=== PATIENT | female | born 1965 | race Caucasian/White ===

== ENCOUNTER 2017-03-11 03:34 | Observation (INO) | payer OTHER ==
[2017-03-11] MEDS ORDERED: NITROGLYCERIN SL TABS 0.4 MG TAB SUBLINGUAL STA (03:54)
--- NOTE | 2017-03-11 04:00 | ED ---
Chest Pain HPI - General Chief Complaint: Chest Pain Stated Complaint: Chest pain Time Seen by Provider: 03/11/17 03:41 Source: patient Mode of arrival: wheelchair Limitations: no limitations - History of Present Illness Initial Comments: Patient is a 51-year-old woman who presents to be evaluated for left-sided chest pain. Patient states that she had gotten up to use the bathroom around 3 AM. She noted that she was feeling somewhat lightheaded. After she had gone back to bed she noted that she was having some left-sided chest pain. He was a heavy sensation, constant, moderate severity area she did not note any worsening or relieving factors. The patient did take 4 baby aspirin at home and they decided she should be seen here. While she was coming to the emergency department she noted some pain to her left arm. The patient denies dyspnea, diaphoresis, nausea or vomiting, palpitations or syncope. MD Complaint: chest pain -: minutes(s) Onset: during rest Pain Location: left chest Pain Radiation: LUE Severity: moderate Quality: tightness Consistency: constant Improves With: nothing Worsens With: nothing Treatments Prior to Arrival: aspirin - Related Data Home Medications Medication Instructions Recorded Confirmed Hydrochlorothiazide [Hydrodiuril] 12.5 mg PO DAILY 03/11/17 03/11/17 Allergies Allergy/AdvReac Type Severity Reaction Status Date / Time amoxicillin Allergy Rash/Hives Verified 03/11/17 03:39 Review of Systems ROS Statement: Those systems with pertinent positive or pertinent negative responses have been documented in the HPI. ROS Other: All systems not noted in ROS Statement are negative. Constitutional: Denies: fever, chills Respiratory: Denies: cough, dyspnea Cardiovascular: Reports: as per HPI, chest pain. Denies: palpitations, edema, syncope Gastrointestinal: Denies: abdominal pain, nausea, vomiting, diarrhea Genitourinary: Denies: dysuria, hematuria Musculoskeletal: Denies: back pain Skin: Denies: rash Neurological: Denies: headache, weakness, numbness Psychiatric: Reports: anxiety EKG Findings - EKG Results: EKG: interpreted by BRAD, sinus rhythm (Rate 93 bpm), normal axis, normal QRS, normal ST/T - Blocks, [place], Hypertrophy, ST Abn: Repolarization changes or abnormalities: nonspecific abnormality, ST segment, and/or T wave, Q-T interval prolongation Past Medical History Past Medical History: Hypertension History of Any Multi-Drug Resistant Organisms: None Reported Past Surgical History: Orthopedic Surgery Additional Past Surgical History / Comment(s): Right ankle surgery Past Psychological History: No Psychological Hx Reported Smoking Status: Never smoker Past Alcohol Use History: None Reported Past Drug Use History: None Reported General Exam Limitations: no limitations General appearance: alert, in no apparent distress, obese Head exam: Present: atraumatic, normocephalic Eye exam: Present: normal appearance. Absent: scleral icterus, conjunctival injection ENT exam: Present: normal oropharynx Neck exam: Present: normal inspection, full ROM Respiratory exam: Present: normal lung sounds bilaterally. Absent: respiratory distress, wheezes, rales, rhonchi, stridor, chest wall tenderness Cardiovascular Exam: Present: regular rate, normal rhythm, normal heart sounds. Absent: systolic murmur, diastolic murmur, rubs, gallop GI/Abdominal exam: Present: soft. Absent: distended, tenderness, guarding, rebound, mass Extremities exam: Present: normal inspection, normal capillary refill. Absent: pedal edema, calf tenderness Back exam: Present: normal inspection. Absent: CVA tenderness (R), CVA tenderness (L) Neurological exam: Present: alert Skin exam: Present: warm, dry, intact, normal color. Absent: rash Course Vital Signs 03/11/17 03/11/17 03/11/17 03:36 04:06 05:00 Temperature 98.0 F Pulse Rate 95 71 84 Respiratory 18 18 20 Rate Blood Pressure 180/96 136/77 O2 Sat by Pulse 98 99 100 Oximetry 03/11/17 06:00 Temperature Pulse Rate 80 Respiratory 16 Rate Blood Pressure 144/81 O2 Sat by Pulse 100 Oximetry Chest Pain MDM - MDM This patient is a 51-year-old woman coming to the hospital evaluated for left- sided chest pain. The patient does have extensive family history for coronary artery disease and she has not had previous cardiology workup. Her initial workup is negative but given the risk factors will admit the patient for telemetry monitoring, serial cardiac enzymes and cardiology consultation. Disposition Clinical Impression: Chest pain Disposition: ADMITTED IP TO THIS [facility] Condition: Fair Referrals: Vargas Castillo DO [Primary Care Provider] - 1-2 days
[2017-03-11 04:09] LABS: Basophils # (A) 0.1 k/uL (0-0.2); Basophils % (A) 1 %; CHCM 33.3; Eosinophils # (A) 0.4 k/uL (0-0.7); Eosinophils % (A) 4 %; HCT 40.2 % (34.0-46.0); HDW 2.87; HGB 13.2 gm/dL (11.4-16.0); Luc # (Auto) 0.21; Luc % (Auto) 2; Lymphocytes # (A) 3.5 k/uL (1.0-4.8); Lymphocytes % (A) 33 %; MCH 28.7 pg (25.0-35.0); MCHC 32.9 g/dL (31.0-37.0); MCV 87.3 fL (80.0-100.0); Mean Platelet Volume 6.8; Monocytes # (A) 0.5 k/uL (0-1.0); Monocytes % (A) 5 %; Neutrophils % (A) 57 %; RBC 4.61 m/uL (3.80-5.40); WBC 10.7 k/uL (3.8-10.6); WBC (Perox) 10.78
[2017-03-11 04:18] LABS: ALT 18 U/L (9-52); AST 23 U/L (14-36); Alkaline Phosphatase 125 U/L (38-126); Anion Gap 8 mmol/L; Blood Urea Nitrogen 17 mg/dL (7-17); Calcium 9.2 mg/dL (8.4-10.2); Carbon Dioxide 26 mmol/L (22-30); Chloride 107 mmol/L (98-107); Glucose 120 mg/dL (74-99); Non-African American GFR(MDRD) >60 (>60 ml/min/1.73 sqM); Sodium 141 mmol/L (137-145); Total Bilirubin 0.5 mg/dL (0.2-1.3); Total Protein 6.9 g/dL (6.3-8.2)
[2017-03-11 04:25] LABS: Partial Thromboplastin Time 24.3 sec (22.0-30.0)
[2017-03-11 04:37] LABS: Creatine Kinase 120 U/L (30-135)
--- NOTE | 2017-03-11 04:48 | XR ---
EXAM: XR Chest, 1 View CLINICAL HISTORY: Chest pain. TECHNIQUE: Frontal view of the chest. COMPARISON: No relevant prior studies available. FINDINGS: Lungs: No focal consolidation. No evidence of pulmonary edema. Pleural space: No pleural effusion. No pneumothorax. Heart: Unremarkable. Normal cardiac silhouette size. Mediastinum: Unremarkable. Bones/joints: Unremarkable. IMPRESSION: No radiographic evidence of acute cardiopulmonary process.
[2017-03-11 04:50] LABS: Creatine Kinase MB 1.6 ng/mL (0.0-2.4); Troponin I <0.012 ng/mL (0.000-0.034)
[2017-03-11] MEDS ORDERED: RX INFO: IV CONTRAST WAS GIVEN 1 EACH MISC MISCELLANE PRN (04:53)
--- NOTE | 2017-03-11 06:11 | CT ---
EXAM: CT Angiography Chest With Intravenous Contrast CLINICAL HISTORY: Pain. TECHNIQUE: Axial computed tomographic angiography images of the chest with intravenous contrast using pulmonary embolism protocol. MIP reconstructed images were created and reviewed. Coronal and sagittal reformatted images were created and reviewed. DOSE INFORMATION: CTDI is 7.50, 78.40, 19.50 mGy and DLP is 645.40 mGy-cm. This CT exam was performed using one or more of the following dose reduction techniques: automated exposure control, adjustment of the mA and/or kV according to patient size, and/or use of iterative reconstruction technique. COMPARISON: No prior CT available for comparison. FINDINGS: Pulmonary arteries: No evidence of central pulmonary embolism. Suboptimal opacification of the peripheral pulmonary arteries limits evaluation for small peripheral pulmonary emboli. Aorta: No thoracic aortic aneurysm or dissection. Lungs: Mild motion artifact. No evidence of focal consolidation. No pulmonary edema. Pleural space: No pleural effusion. No pneumothorax. Heart: Normal cardiac size. No pericardial effusion. No evidence of RV dysfunction. Bones/joints: Degenerative changes of the spine. No acute fracture. No dislocation. Soft tissues: No significant soft tissue abnormality. Lymph nodes: No enlarged lymph nodes. Liver: Fatty infiltration of the liver. IMPRESSION: 1. No evidence of central pulmonary embolism. Evaluation for small peripheral pulmonary emboli is limited due to suboptimal opacification of the peripheral pulmonary arteries. 2. No thoracic aortic aneurysm or dissection. 3. No focal consolidation, pleural effusion or pneumothorax. 4. Fatty infiltration of the liver.
[2017-03-11] MEDS ORDERED: MORPHINE SULFATE 4 MG/ML SYRINGE IV PRN (06:35)
[2017-03-11] MEDS ORDERED: NITROGLYCERIN SL TABS 0.4 MG TAB SUBLINGUAL PRN (06:35)
[2017-03-11 07:47] VITALS: BMI 48.4
[2017-03-11 08:18] LABS: Creatine Kinase 109 U/L (30-135)
[2017-03-11 08:27] LABS: Creatine Kinase MB 1.2 ng/mL (0.0-2.4); Troponin I <0.012 ng/mL (0.000-0.034)
--- NOTE | 2017-03-11 09:09 | P.PN ---
Progress Note - Text Consulted on this 49-year-old female 51-year-old female presenting with Dizziness upon walking to the bathroom in the middle of the night Spinning sensation after coming back Chest discomfort under the left breast lasting for 2 hours and was present when she came to the hospital First 12-lead ECG shows sinus mechanism normal [place] narrow QRS and a 2.[address] depression in the lateral precordial leads QT interval is mildly prolonged Very strong family history of premature coronary artery disease in his siblings and her father Unknown lipid status Obesity Nondiabetic Nonsmoker no alcohol use Examination in the supine position reveals a systolic murmur, less evident upon standing Suggest 3 sets of cardiac enzymes These are normal then dobutamine stress echo Lipid panel Risk factor modification targeting obesity and dyslipidemia 2-D echo and Doppler study See full consult
--- NOTE | 2017-03-11 09:52 | CONS ---
DATE OF CONSULTATION: 03/11/2017 Tessy is a 51-year-old female. Please see my impression and plan on separate dictation. Tessy woke up in the middle of the night, went to the bathroom. She was a bit dizzy. When she came back, she was even more dizzy and when she sat down on the bed, she became very lightheaded. She started experiencing a spinning sensation. Following that, she developed pain under her left breast and that remained there for an hour or two and when she came to the ER she was concerned about chest discomfort. The pain continued. Her first 12-lead ECG shows sinus rhythm, normal DC, normal QRS and 0.[address] depression in the lateral precordial leads. She does have history of hypertension. She takes hydrochlorothiazide. REVIEW OF SYSTEMS: No fever, chills, rigors. No cough or expectoration. No nausea, vomiting, or diarrhea. No hematuria, or dysuria. No strokes or seizures. No skin lesions. No musculoskeletal complaints. Past history of hypertension and obesity. No history of diabetes. She does not know her lipid panel. SOCIAL HISTORY: She does not smoke. She does consume alcohol very occasionally. PAST SURGERIES: Ankle surgery. ALLERGIES: PENICILLIN. Medications: HydroDIURIL 12.5 mg p.o. daily. On examination, her blood pressure upon admission was 180/96 mmHg but later it became it was found to be 136/77, 144/81 millimeters of Hg. Head and neck examination is normal. Heart sounds S1, S2 normal. There is a systolic murmur audible when she was supine in the left parasternal area, but upon standing the murmur is less prominent. Breath sounds are normal. No rhonchi. No crackles. EXTREMITIES: Warm. No edema. IMPRESSION: 1. Dizziness, followed by a spinning sensation suggestive of vertigo. No palpitations. 2. History of hypertension, blood pressure is elevated upon admission and this morning it was 144/81 millimeters of mercury upon admission it was 180/96 mmHg. 3. Chest discomfort with two normal cardiac enzymes and ECG which shows a 0.[address] depression without any changes. SUGGEST: 1. 2-D echo and Doppler study to assess cardiac murmur. 2. Exercise stress echo to maximum capacity if 3 cardiac enzymes are normal tomorrow. 3. Her symptoms may be related to hypertension if her blood pressure was truly elevated upon initially. She should keep her blood pressure monitored morning and evening for the next 2 to 3 weeks and I would advise Lisinopril. 4. She has a very strong family history of premature coronary artery disease in multiple siblings and father. 5. Check a lipid panel also. Please see the rest of the consultation dictated separately.
[2017-03-11 10:06] LABS: Cholesterol 180 mg/dL (<200); HDL Cholesterol 38 mg/dL (40-60); Triglycerides 154 mg/dL (<150)
[2017-03-11] MEDS: HYDROCHLOROTHIAZIDE 12.5 MG CAP PO SCH (10:20)
[2017-03-11] MEDS: LOSARTAN 25 MG TAB PO SCH (10:20)
[2017-03-11] MEDS: HEPARIN SODIUM,PORCINE 5,000 UNIT/ML 1 ML VIAL SQ SCH ×3 (10:20→22:21)
--- NOTE | 2017-03-11 16:22 | HP ---
DATE OF ADMISSION: 03/11/2017 CHIEF COMPLAINT: Left-sided chest pain. HISTORY OF PRESENT ILLNESS: Ms. Kathleen is a 51-year-old female with a past medical history of hypertension, presents to the emergency department with the chief complaint of left-sided chest pain. The patient states that she woke up around 3:00 in the morning went to the bathroom and she started to have chest pains and at the same time she is lightheaded and dizzy so she had a heavy sensation in the left side of the chest. Patient did complain of some diaphoresis and lightheadedness. The pain was on the left-side of the chest radiating to the back. She did take 4 baby aspirins at home and came into the ER for further evaluation. Patient does have a past medical history of hypertension and is compliant with her blood pressure medications, but there is an extensive family history of coronary artery disease in all her brothers and father at a very young age. She never smoked but drinks occasionally. REVIEW OF SYSTEMS: CONSTITUTIONAL: Denies having any fevers, chills or rigors. RESPIRATORY: No cough. No difficulty in breathing. CARDIAC: As per HPI. GI: No abdominal pain, nausea, vomiting, or diarrhea. : No dysuria or hematuria. ENDOCRINE: No history of heat or cold intolerance. MUSCULOSKELETAL: No joint swellings or deformities. All 13 review of systems are negative except for the ones mentioned in HPI. Past medical history is significant for hypertension. ALLERGIES: AMOXICILLIN. Patient's home medications: Hydrochlorothiazide 12.5 mg p.o. daily. FAMILY HISTORY: Significant for coronary artery disease in all her brothers and father at a very young age. SOCIAL HISTORY: Never smoked. Occasional alcohol. No history of intravenous drug abuse. The patient's vitals at the time of admission: Temperature 98, heart rate 95, respiratory rate 18, blood pressure 180/96, saturating at 98% on room air. GENERAL EXAMINATION: Patient appears to be no acute distress. HEAD: Atraumatic, normocephalic. EYES: Pupils, round, and reactive to light. NECK: No JVD. No thyromegaly. CARDIOVASCULAR: S1, S2 heard. No additional sounds. RESPIRATORY: Bilateral breath sounds are positive. No wheeze or crackles. ABDOMEN: Soft, nontender. Bowel sounds are positive. No organomegaly appreciated due to huge body habitus. EXTREMITIES: No cyanosis, no edema. Peripheral pulses felt. FIREARMS INSTRUCTOR: Alert, awake and oriented x3. No focal neurological deficits. SKIN: No rash. PSYCHIATRIC: Appropriate mood and affect. Patient is morbidly obese. Patient's labs: White count of 10.7, hemoglobin is 13.2, platelets of 228. Sodium is 141, potassium 4, chloride 107, bicarb 26, BUN 17, creatinine is 0.86, troponin less than 0.012 x2. The patient had a CTA of the chest, which is negative for any PE. There is fatty infiltration of the liver. ASSESSMENT AND PLAN: 1. Left-sided chest pain, rule out acute coronary artery syndrome. Patient is to have serial troponins and EKGs. As the patient has extensive family history of coronary artery disease, she is being scheduled for a stress test for tomorrow morning. 2. Hypertension. 3. Morbid obesity with body mass index of 48. PLAN: Will continue with the current medication regimen and further recommendations to follow depending on the progress of the patient.
[2017-03-11 16:36] LABS: Creatine Kinase 104 U/L (30-135)
[2017-03-11 16:48] LABS: Creatine Kinase MB 1.1 ng/mL (0.0-2.4); Troponin I <0.012 ng/mL (0.000-0.034)
[2017-03-12 07:11] LABS: Basophils % (A) 0 %; CH 28.6; CHCM 32.7; Eosinophils # (A) 0.3 k/uL (0-0.7); Eosinophils % (A) 3 %; HCT 39.6 % (34.0-46.0); HDW 2.83; HGB 12.9 gm/dL (11.4-16.0); Luc # (Auto) 0.12; Luc % (Auto) 2; Lymphocytes # (A) 2.5 k/uL (1.0-4.8); Lymphocytes % (A) 30 %; MCH 28.6 pg (25.0-35.0); MCHC 32.6 g/dL (31.0-37.0); MCV 87.7 fL (80.0-100.0); Mean Platelet Volume 6.9; Monocytes # (A) 0.4 k/uL (0-1.0); Monocytes % (A) 5 %; Neutrophils # (A) 5.1 k/uL (1.3-7.7); Neutrophils % (A) 61 %; RBC 4.52 m/uL (3.80-5.40); RDW 13.8 % (11.5-15.5); WBC 8.4 k/uL (3.8-10.6); WBC (Perox) 8.51
[2017-03-12 07:52] LABS: Anion Gap 7 mmol/L; Blood Urea Nitrogen 13 mg/dL (7-17); Calcium 9.1 mg/dL (8.4-10.2); Carbon Dioxide 26 mmol/L (22-30); Chloride 107 mmol/L (98-107); Cholesterol 176 mg/dL (<200); Glucose 104 mg/dL (74-99); HDL Cholesterol 37 mg/dL (40-60); Non-African American GFR(MDRD) >60 (>60 ml/min/1.73 sqM); Potassium 4.4 mmol/L (3.5-5.1); Sodium 140 mmol/L (137-145); Triglycerides 175 mg/dL (<150)
[2017-03-12 07:57] VITALS: RESP 16
[2017-03-12] MEDS ORDERED: ASPIRIN 325 MG TAB PO SCH (09:00)
--- NOTE | 2017-03-12 09:50 | ECHOF ---
Referral Reason:dizzy, cp cardiac murmur MEASUREMENTS -------- HEIGHT: 167.6 cm WEIGHT: 136.1 kg BP: 120/69 IVSd: 1.3 cm (0.6 - 1.1) LVIDd: 3.8 cm (3.9 - 5.3) LVPWd: 1.6 cm (0.6 - 1.1) IVSs: 1.9 cm LVIDs: 2.1 cm LVPWs: 2.1 cm Ao Diam: 2.8 cm (2.0 - 3.7) AV Cusp: 1.8 cm (1.5 - 2.6) LA Diam: 2.2 cm (2.7 - 3.8) MV EXCURSION: 18.742 mm (> 18.000) MV EF SLOPE: 118 mm/s (70 - 150) EPSS: 0.7 cm MV E Marck: 0.69 m/s MV DecT: 199 ms MV A Marck: 0.64 m/s MV E/A Ratio: 1.07 RAP: 5.00 mmHg RVSP: 9.13 mmHg FINDINGS -------- Sinus rhythm. This was a technically adequate study. The left ventricular size is normal. There is moderate concentric left ventricular hypertrophy. Overall left ventricular systolic function is normal with, an EF between 55 - 60 %. The right ventricle is normal in size. The left atrium is normal in size. The right atrium is normal in size. The aortic valve was not well visualized. The mitral valve is normal. There is trace mitral regurgitation. Trace tricuspid regurgitation present. The right ventricular systolic pressure, as measured by Doppler, is 9.13mmHg. The pulmonic valve was not well visualized. The aortic root size is normal. There is no pericardial effusion. CONCLUSIONS -------- 1. Sinus rhythm. 2. The pulmonic valve was not well visualized. 3. The aortic root size is normal. 4. There is no pericardial effusion. 5. This was a technically adequate study. 6. There is moderate concentric left ventricular hypertrophy. 7. Overall left ventricular systolic function is normal with, an EF between 55 - 60 %. 8. The left atrium is normal in size. 9. The aortic valve was not well visualized. 10. There is trace mitral regurgitation. 11. Trace tricuspid regurgitation present. 12. The right ventricular systolic pressure, as measured by Doppler, is 9.13mmHg. COMPACT ASSEMBLER: Shaunna Larson RDCS
--- NOTE | 2017-03-12 10:49 | PN ---
Tessy Kathleen is doing well. She denies any chest discomfort. No undue shortness of breath. Her cardiac enzymes are normal. Her blood pressure is normal 109/54 mmHg, respirations are normal. Heart rate is in the 80s to 90s, afebrile. Head and neck examination is normal. Heart sounds S1, S2 are normal. No murmur. No gallop. Breath sounds are normal. No rhonchi. No crackles. Abdomen is soft, nontender. Extremities are warm. No edema. PLAN: Stress test today and further recommendations thereafter. Continue current management. Her lipid panel was reviewed and shows her triglycerides 175, total cholesterol 176, LDL of 111 and HDL of 38. She is currently on losartan 25 mg p.o. daily for hypertension management along with hydrochlorothiazide. She also takes a baby aspirin and she should also be switched for now she is taking a full aspirin but in the future, will decide regarding aspirin therapy.
--- NOTE | 2017-03-12 12:44 | ECHOS ---
DATE OF SERVICE: 03/12/2017 AGE: 51Y SEX: F HT: 66" WT: 306 lbs. Protocol Deon: X Others: Stress Echo Stage: 2 Dur. of Exercise: 5:00 *Heart Rate Blood Pressure *Rest: 85 Rest: 133/45 * *Max. Achieved: 163 Maximum BP: 206/53 85% PMHR: 145 100% PMHR: 171 *METS: 7.0 INDICATIONS: Chest pain. MEDICATIONS: Hydrochlorothiazide. Baseline rhythm is sinus mechanism, rate of 85, normal axis and intervals, minor nonspecific ST-T wave changes. Baseline blood pressure 133/45 mmHg. Patient exercised on Deon protocol for 5 minutes reaching peak rate of 163 beats per minute, which is equal to 95% maximum predicted heart rate; peak blood pressure 206/53 mmHg. The test was terminated due to fatigue. There was no chest pain. Electrocardiographic monitoring revealed no evidence of diagnostic ischemic ST deviation. FINDINGS: Baseline echocardiogram revealed normal wall thickening and motion. At peak exercise there was normal wall motion augmentation with no hypokinesis or dyskinesis. CONCLUSION: 1. Poor exercise tolerance with normal electrocardiograph response to exercise. 2. Normal stress echocardiogram with no evidence of stress-induced ischemia.
[2017-03-12 12:47] VITALS: BP 142/99; PULSE 106; TEMP 97.9
--- NOTE | 2017-03-12 13:27 | P.DS ---
Providers Date of admission: 03/11/17 06:35 Expected date of discharge: 03/12/17 Attending physician: Vargas Castillo Consults: 03/11/17 06:35 Consult Physician Routine Consulting Provider: Fadia Moseley Consult Reason/Comments: chest pain Do you want consulting provider notified?: Yes Primary care physician: Vargas Castillo [facility] Course: Patient is a 51-year-old female, patient of Dr. Vargas Castillo in the outpatient setting, with a medical history significant for hypertension and morbid obesity. Patient presented with chief complaint of left-sided chest pain associated with diaphoresis and lightheadedness. CTA chest negative for PE. Fatty infiltration of the liver. Patient was admitted to observation with cardiology consult. Patient underwent a stress test and stress echo which revealed no evidence of diagnostic ischemic ST deviation. Patient was deemed stable for discharge to home with follow-up with the outpatient setting. 1. Chest pain, not consistent with acute coronary syndrome. 2. Hypertension. 3. Morbid obesity. 4. Fatty liver. The above impression and plan have been discussed and directed by Dr. Castillo. Gordon BENTLEY acting as scribe for Dr. Castillo. Pertinent Studies: Chest x-ray; chest CTA; echocardiogram with Doppler Procedures: Stress echo; stress test Patient Condition at Discharge: Good Plan - Discharge Summary New Discharge Prescriptions: Aspirin 325 mg PO DAILY #30 tab Losartan [Cozaar] 25 mg PO DAILY #30 tab Discharge Medication List Hydrochlorothiazide [Hydrodiuril] 12.5 mg PO DAILY 03/11/17 [History] Aspirin 325 mg PO DAILY #30 tab 03/12/17 [Rx] Losartan [Cozaar] 25 mg PO DAILY #30 tab 03/12/17 [Rx] Follow up Appointment(s)/Referral(s): Vargas Castillo DO [Primary Care Provider] - 1-2 days Nicolás Cooney MD [STAFF PHYSICIAN] - 2 Weeks Patient Instructions/Handouts: Noncardiac Chest Pain (DC) Discharge Disposition: HOME SELF-CARE
[2017-03-12] MEDS: LOSARTAN 25 MG TAB PO SCH (14:40)
[2017-03-12] MEDS: HYDROCHLOROTHIAZIDE 12.5 MG CAP PO SCH (14:40)
[2017-03-12] MEDS: HEPARIN SODIUM,PORCINE 5,000 UNIT/ML 1 ML VIAL SQ SCH (14:41)
== END 2017-03-12 14:37 | disposition home or self-care (01) ==
LOC: EC 03:34 → 3OBS 06:35
PROVIDERS: ADMIT Family Medicine; ATTEND Family Medicine
DX: R07.89 Other chest pain (principal); R42 Dizziness and giddiness; Z79.899 Other long term (current) drug therapy; Z88.0 Allergy status to penicillin; I10 Essential (primary) hypertension; I45.81 Long QT syndrome; F41.9 Anxiety disorder, unspecified; Z82.49 Family history of ischemic heart disease and other diseases of the circulatory system; K76.0 Fatty (change of) liver, not elsewhere classified; R01.1 Cardiac murmur, unspecified; E78.5 Hyperlipidemia, unspecified; E66.01 Morbid (severe) obesity due to excess calories; Z68.42 Body mass index [BMI] 45.0-49.9, adult
CPT/HCPCS: 96372; 99285; 36415; 93005; 93017; 93306; 93350; 85379; 80061 ×2; 80053; 80048; 82550; 82553; 83735; 84484; 85025 ×2; 85610; 85730; 71010; 71275; G0378 ×2; J1644; Q9967

== ENCOUNTER 2017-10-08 08:06 | Day surgery (SDC) | payer OTHER ==
[2017-10-04 14:16] VITALS: BMI 43.8
[~2017-10-08 08:06] MED LIST: DEXAMETHASONE SOD PHOSPHATE 10 MG/ML 1 ML VIAL IV ONE; HEPARIN SODIUM,PORCINE 5,000 UNIT/ML 1 ML VIAL SQ ONE; MIDAZOLAM 2 MG/2 ML VIAL IV PRN; MORPHINE SULFATE 4 MG/ML SYRINGE IV PRN; ONDANSETRON 4 MG/2 ML VIAL IVP ONE; SCOPOLAMINE 1.5MG/72HR PATCH TRANSDERM ONE; ceFAZolin 3 GM in SODIUM CHLORIDE 0.9% 100 ML IVPB ONE
[2017-10-08] MEDS: LACTATED RINGERS 1,000 ML IV SCH ×3 (08:48→12:00)
[2017-10-08] MEDS ORDERED: LIDOCAINE 1% 20 ML VIAL (10MG/ML) FOR IV START INTRADERMA ONE (08:49)
--- NOTE | 2017-10-08 08:55 | P.GSHP ---
History of Present Illness H&P Date: 10/08/17 Chief Complaint: Upper quadrant pain, cholelithiasis A 52-year-old female referred from Dr. Vargas Adam. Patient's had complaints of right upper quadrant pain. She is found have evidence of cholelithiasis. Past Medical History Past Medical History: Hypertension History of Any Multi-Drug Resistant Organisms: None Reported Past Surgical History: Orthopedic Surgery Additional Past Surgical History / Comment(s): Right ankle surgery Past Anesthesia/Blood Transfusion Reactions: No Reported Reaction Smoking Status: Never smoker - Past Family History Mother Family Medical History: Cancer, Diabetes Mellitus Additional Family Medical History / Comment(s): bone Father Family Medical History: CVA/TIA Sister(s) Family Medical History: Coronary Artery Disease (CAD), Myocardial Infarction (DE ) Additional Family Medical History / Comment(s): 1 sister from spinal meningitis Brother(s) Family Medical History: Congestive Heart Failure (CHF), Coronary Artery Disease (CAD), Myocardial Infarction (DE) Additional Family Medical History / Comment(s): from heart failure & PE Medications and Allergies Home Medications Medication Instructions Recorded Confirmed Type Hydrochlorothiazide [Hydrodiuril] 12.5 mg PO DAILY 03/11/17 10/08/17 History Losartan [Cozaar] 50 mg PO DAILY 10/04/17 10/08/17 History Allergies Allergy/AdvReac Type Severity Reaction Status Date / Time amoxicillin Allergy Rash/Hives Verified 10/04/17 14:04 Surgical - Exam Vital Signs Temp Pulse Resp BP Pulse Ox 98.8 F 87 16 132/63 100 10/08/17 08:41 10/08/17 08:41 10/08/17 08:41 10/08/17 08:41 10/08/17 08:41 - General well developed, no distress - Eyes PERRL - ENT normal pinna - Neck no masses - Respiratory normal expansion - Cardiovascular Rhythm: regular - Abdomen Abdomen: soft, non tender Assessment and Plan Assessment: Quadrant pain Lithiasis We'll perform laparoscopic cholecystectomy.
[2017-10-08] MEDS ORDERED: ROCURONIUM BROMIDE 10 MG/ML 10 ML VIAL IV ONE (09:22)
[2017-10-08] MEDS ORDERED: SUCCINYLCHOLINE CHLORIDE 100 MG/5 ML SYR IV ONE (09:22)
[2017-10-08] MEDS ORDERED: PROPOFOL 10 MG/ML 20 ML VIAL IV ONE (09:22)
[2017-10-08] MEDS ORDERED: fentaNYL (PF) 50 MCG/ML 2 ML AMP ONE (09:22)
[2017-10-08] MEDS ORDERED: MIDAZOLAM 2 MG/2 ML VIAL ONE (09:22)
[2017-10-08] MEDS ORDERED: NEOSTIGMINE 1 MG/ML 10 ML VIAL ONE (09:22)
[2017-10-08] MEDS ORDERED: SODIUM CHLORIDE 0.9% 100 ML with ceFAZolin 3,000 MG IV ONE ×2 (09:22)
[2017-10-08] MEDS ORDERED: KETOROLAC 30 MG/ML 1 ML VIAL ONE (09:22)
[2017-10-08] MEDS ORDERED: GLYCOPYRROLATE 0.2 MG/ML 2 ML VIAL ONE (09:22)
[2017-10-08] MEDS ORDERED: LIDOCAINE 1% INJ 10MG/ML (20 ML MDV) ONE (09:22)
[2017-10-08] MEDS ORDERED: BUPIVACAINE-EPI 0.5%-1:200,000 10 ML VIAL SQ ONE ×2 (09:28→09:42)
[2017-10-08 10:20] VITALS: TEMP 97.5
[2017-10-08 11:30] VITALS: RESP 18
[2017-10-08 12:00] VITALS: BP 115/63; PULSE 50
--- NOTE | 2017-11-08 11:19 | P.OP ---
Date of Procedure: 10/08/17 Preoperative Diagnosis: Cholelithiasis Postoperative Diagnosis: Cholelithiasis Procedure(s) Performed: Laparoscopic cholecystectomy Anesthesia: NAVARRO Surgeon: Walt Ashley Estimated Blood Loss (ml): 5 Pathology: other (Gallbladder) Condition: stable Disposition: PACU Description of Procedure: The patient was placed on the operating table. The patient received a general endotracheal tube anesthesia. The patients abdomen was prepped and draped in the usual sterile fashion. Through an infraumbilical stab incision, the fascia of the anterior abdominal wall was grasped with a pair of Kochers and then the Veress needle was placed in the peritoneal cavity. Position of the Veress needle was confirmed with positive drop test. The abdomen was then insufflated. After adequate insufflation, the 10 mm trocar was placed in the peritoneal cavity. Following this the laparoscope was placed in the peritoneal cavity. The patient was placed in the head-up, right side up position and then a 5 mm trocar was placed in the right lateral and right subcostal position under direct visualization. A 8 mm trocar was placed in the epigastric position. The gallbladder was grasped in the fundus and infundibulum. Traction on the gallbladder was placed in the lateral and the cephalad positions. The triangle of Calot was visualized.. The cystic duct was bluntly dissected until the union of the cystic duct and common bile duct was seen. The cystic duct was then divided and sealed with the Harmonic scissors. A PDS Endoloop was then placed throughout the cystic duct stump. The cystic artery divided and sealed with the Harmonic scissors. The gallbladder was then removed from the liver bed using Harmonic scissors. The gallbladder was then extracted through the epigastric port site. Operative field was checked for any bleeding spots and Harmonic scissors was used to coagulate the liver bed. The abdomen was irrigated. The trocars were removed. The skin was closed using interrupted 3-0 Vicryl suture. Dermabond dressing were applied. The patient tolerated the procedure well.
== END 2017-10-08 12:08 | disposition home or self-care (01) ==
LOC: OR 08:06
PROVIDERS: ATTEND Surgery
DX: K80.10 Calculus of gallbladder with chronic cholecystitis without obstruction (principal); I10 Essential (primary) hypertension; Z82.49 Family history of ischemic heart disease and other diseases of the circulatory system; Z83.3 Family history of diabetes mellitus; Z80.9 Family history of malignant neoplasm, unspecified; Z82.3 Family history of stroke; Z79.899 Other long term (current) drug therapy; Z88.1 Allergy status to other antibiotic agents
CPT/HCPCS: 81025; 88304; 47562; J2250; J1644; J1100; J2710; J2405; J2001; J3010; J1885; J0690; J0330; J2704

== ENCOUNTER 2017-10-27 09:14 | Observation (INO) | payer OTHER ==
[2017-10-27] MEDS ORDERED: NITROGLYCERIN OINT 1 INCH/GM PACKET TOPICAL STA (09:31)
[2017-10-27] MEDS ORDERED: ASPIRIN 81 MG PO STA (09:31)
--- NOTE | 2017-10-27 09:35 | ED ---
General Adult HPI - General Chief complaint: Chest Pain Stated complaint: BACK PAIN BETWEEN SHOULDER, CHEST PAIN Time Seen by Provider: 10/27/17 09:15 Source: patient, RN notes reviewed Mode of arrival: wheelchair Limitations: no limitations - History of Present Illness Initial comments: This a 52-year-old female presents emergency Department with a past medical history significant for hypertension and a cholecystectomy on October 08. Patient states on Sunday night she started having severe chest pressure and pain in the back between her shoulder blades. Patient denies any shortness of breath. Patient denies any palpitations patient denies any diaphoresis. Patient states the pain lasted about 5 hours and once a night and since then it' s been intermittent and the back pain is been constant. Patient denies any difficulty breathing or diaphoresis since then. Patient states she has not had a cough or fever she's never been short of breath. Patient denies any leg swelling or calf pain. Patient states currently she has no chest pain but still has the back pain. - Related Data Home Medications Medication Instructions Recorded Confirmed Hydrochlorothiazide [Hydrodiuril] 12.5 mg PO DAILY 03/11/17 10/27/17 Losartan [Cozaar] 50 mg PO DAILY 10/04/17 10/27/17 Aspirin EC [Ecotrin Low Dose] 81 mg PO DAILY 10/27/17 10/27/17 Allergies Allergy/AdvReac Type Severity Reaction Status Date / Time amoxicillin Allergy Rash/Hives Verified 10/27/17 11:27 Review of Systems ROS Statement: Those systems with pertinent positive or pertinent negative responses have been documented in the HPI. ROS Other: All systems not noted in ROS Statement are negative. Past Medical History Past Medical History: Hypertension History of Any Multi-Drug Resistant Organisms: None Reported Past Surgical History: Cholecystectomy, Orthopedic Surgery Additional Past Surgical History / Comment(s): Right ankle surgery Past Anesthesia/Blood Transfusion Reactions: No Reported Reaction Past Psychological History: No Psychological Hx Reported Smoking Status: Never smoker Past Alcohol Use History: Rare Past Drug Use History: None Reported - Past Family History Mother Family Medical History: Cancer, Diabetes Mellitus Additional Family Medical History / Comment(s): bone Father Family Medical History: CVA/TIA Sister(s) Family Medical History: Coronary Artery Disease (CAD), Myocardial Infarction (RI ) Additional Family Medical History / Comment(s): 1 sister from spinal meningitis Brother(s) Family Medical History: Congestive Heart Failure (CHF), Coronary Artery Disease (CAD), Myocardial Infarction (RI) Additional Family Medical History / Comment(s): from heart failure & PE General Exam - General Exam Comments Initial Comments: GENERAL: Patient is well-developed and well-nourished. Patient is nontoxic and well- hydrated and is in mild distress. ENT: Neck is soft and supple. No significant lymphadenopathy is noted. Oropharynx is clear. Moist mucous membranes. Neck has full range of motion without eliciting any pain. EYES: The sclera were anicteric and conjunctiva were pink and moist. Extraocular movements were intact and pupils were equal round and reactive to light. Eyelids were unremarkable. PULMONARY: Unlabored respirations. Good breath sounds bilaterally. No audible rales rhonchi or wheezing was noted. CARDIOVASCULAR: There is a regular rate and rhythm without any murmurs gallops or rubs. ABDOMEN: Soft and nontender with normal bowel sounds. No palpable organomegaly was noted. There is no palpable pulsatile mass. SKIN: Skin is clear with no lesions or rashes and otherwise unremarkable. NEUROLOGIC: Patient is alert and oriented x3. Cranial nerves II through XII are grossly intact. Motor and sensory are also intact. Normal speech, volume and content. Symmetrical smile. MUSCULOSKELETAL: Normal extremities with adequate strength and full range of motion. No lower extremity swelling or edema. No calf tenderness. LYMPHATICS: No significant lymphadenopathy is noted PSYCHIATRIC: Normal psychiatric evaluation. Normal interpersonal interactions appears functionally intact in deals appropriately with others. No signs of depression. No signs of anxiety. Limitations: no limitations Course Vital Signs 10/27/17 10/27/17 09:17 10:45 Temperature 97.2 F L Pulse Rate 103 H 92 Respiratory 16 16 Rate Blood Pressure 138/78 132/73 O2 Sat by Pulse 99 100 Oximetry Medical Decision Making - Medical Decision Making EKG shows a sinus tachycardia at 101 bpm VA interval is 192 QRS is 90 QT interval 340 QTC is 440. Patient's EKG shows no ST segment elevation or depression or T wave abnormalities are noted. I compared this EKG to an old EKG there are no acute abnormalities noted Chest x-ray shows no acute abnormality Patient was started on heparin because of her intermittent chest pain. Patient explains more chest pain throughout the ER stay but it only lasted a few minutes each time. I will continue the heparin Nitropaste and aspirin on the floor. I wrote admitting orders and consult to cardiology - Lab Data Result diagrams: 10/27/17 09:30 10/27/17 09:30 Lab Results 10/27/17 10/27/17 10/27/17 Range/Units 09:30 09:30 09:30 WBC 7.3 (3.8-10.6) k/uL RBC 4.83 (3.80-5.40) m/uL Hgb 13.6 (11.4-16.0) gm/dL Hct 42.4 (34.0-46.0) % MCV 87.9 (80.0-100.0) fL MCH 28.1 (25.0-35.0) pg MCHC 32.0 (31.0-37.0) g/dL RDW 14.4 (11.5-15.5) % Plt Count 222 (150-450) k/uL Neutrophils % 65 % Lymphocytes % 26 % Monocytes % 4 % Eosinophils % 3 % Basophils % 0 % Neutrophils # 4.8 (1.3-7.7) k/uL Lymphocytes # 1.9 (1.0-4.8) k/uL Monocytes # 0.3 (0-1.0) k/uL Eosinophils # 0.2 (0-0.7) k/uL Basophils # 0.0 (0-0.2) k/uL PT (9.0-12.0) sec INR (<1.2) APTT (22.0-30.0) sec D-Dimer (<0.60) mg/L FEU Sodium 141 (137-145) mmol/L Potassium 4.0 (3.5-5.1) mmol/L Chloride 104 (98-107) mmol/L Carbon Dioxide 26 (22-30) mmol/L Anion Gap 11 mmol/L BUN 17 (7-17) mg/dL Creatinine 1.09 H (0.52-1.04) mg/dL Est GFR (MDRD) Af Amer >60 (>60 ml/min/1.73 sqM) Est GFR (MDRD) Non-Af 53 (>60 ml/min/1.73 sqM) Glucose 152 H (74-99) mg/dL Calcium 9.7 (8.4-10.2) mg/dL Magnesium 2.1 (1.6-2.3) mg/dL Total Bilirubin 0.7 (0.2-1.3) mg/dL AST 28 (14-36) U/L ALT 24 (9-52) U/L Alkaline Phosphatase 98 (38-126) U/L Total Creatine Kinase 55 (30-135) U/L CK-MB (CK-2) 0.3 (0.0-2.4) ng/mL CK-MB (CK-2) Rel Index 0.5 Troponin I <0.012 (0.000-0.034) ng/mL NT-Pro-B Natriuret Pep pg/mL Total Protein 7.1 (6.3-8.2) g/dL Albumin 4.2 (3.5-5.0) g/dL Amylase 36 (30-110) U/L Lipase 55 (23-300) U/L 10/27/17 10/27/17 Range/Units 09:30 09:30 WBC (3.8-10.6) k/uL RBC (3.80-5.40) m/uL Hgb (11.4-16.0) gm/dL Hct (34.0-46.0) % MCV (80.0-100.0) fL MCH (25.0-35.0) pg MCHC (31.0-37.0) g/dL RDW (11.5-15.5) % Plt Count (150-450) k/uL Neutrophils % % Lymphocytes % % Monocytes % % Eosinophils % % Basophils % % Neutrophils # (1.3-7.7) k/uL Lymphocytes # (1.0-4.8) k/uL Monocytes # (0-1.0) k/uL Eosinophils # (0-0.7) k/uL Basophils # (0-0.2) k/uL PT 9.9 (9.0-12.0) sec INR 1.0 (<1.2) APTT 22.9 (22.0-30.0) sec D-Dimer 0.84 H (<0.60) mg/L FEU Sodium (137-145) mmol/L Potassium (3.5-5.1) mmol/L Chloride (98-107) mmol/L Carbon Dioxide (22-30) mmol/L Anion Gap mmol/L BUN (7-17) mg/dL Creatinine (0.52-1.04) mg/dL Est GFR (MDRD) Af Amer (>60 ml/min/1.73 sqM) Est GFR (MDRD) Non-Af (>60 ml/min/1.73 sqM) Glucose (74-99) mg/dL Calcium (8.4-10.2) mg/dL Magnesium (1.6-2.3) mg/dL Total Bilirubin (0.2-1.3) mg/dL AST (14-36) U/L ALT (9-52) U/L Alkaline Phosphatase (38-126) U/L Total Creatine Kinase (30-135) U/L CK-MB (CK-2) (0.0-2.4) ng/mL CK-MB (CK-2) Rel Index Troponin I (0.000-0.034) ng/mL NT-Pro-B Natriuret Pep 56 pg/mL Total Protein (6.3-8.2) g/dL Albumin (3.5-5.0) g/dL Amylase (30-110) U/L Lipase (23-300) U/L Critical Care Time Critical Care Time: Yes Total Critical Care Time: 35 Disposition Clinical Impression: Unstable angina pectoris Disposition: ADMITTED IP TO THIS HOSP Referrals: Vargas Castillo DO [Primary Care Provider] - 1-2 days Time of Disposition: 11:50
[2017-10-27 09:45] LABS: Basophils % (A) 0 %; Eosinophils # (A) 0.2 k/uL (0-0.7); Eosinophils % (A) 3 %; HCT 42.4 % (34.0-46.0); HGB 13.6 gm/dL (11.4-16.0); Lymphocytes # (A) 1.9 k/uL (1.0-4.8); Lymphocytes % (A) 26 %; MCH 28.1 pg (25.0-35.0); MCV 87.9 fL (80.0-100.0); Mean Platelet Volume 7.7; Monocytes # (A) 0.3 k/uL (0-1.0); Monocytes % (A) 4 %; Neutrophils # (A) 4.8 k/uL (1.3-7.7); Neutrophils % (A) 65 %; Platelet Count 222 k/uL (150-450); RBC 4.83 m/uL (3.80-5.40); RDW 14.4 % (11.5-15.5); WBC 7.3 k/uL (3.8-10.6)
[2017-10-27 09:55] LABS: D-Dimer 0.84 mg/L FEU (<0.60)
[2017-10-27 09:59] LABS: ALT 24 U/L (9-52); AST 28 U/L (14-36); Albumin 4.2 g/dL (3.5-5.0); Alkaline Phosphatase 98 U/L (38-126); Amylase 36 U/L (30-110); Anion Gap 11 mmol/L; Blood Urea Nitrogen 17 mg/dL (7-17); Calcium 9.7 mg/dL (8.4-10.2); Carbon Dioxide 26 mmol/L (22-30); Chloride 104 mmol/L (98-107); Glucose 152 mg/dL (74-99); Lipase 55 U/L (23-300); Magnesium 2.1 mg/dL (1.6-2.3); Partial Thromboplastin Time 22.9 sec (22.0-30.0); Prothrombin Time 9.9 sec (9.0-12.0); Sodium 141 mmol/L (137-145); Total Bilirubin 0.7 mg/dL (0.2-1.3); Total Protein 7.1 g/dL (6.3-8.2)
--- NOTE | 2017-10-27 10:03 | XR ---
EXAMINATION TYPE: XR chest 2V DATE OF EXAM: 10/27/2017 HISTORY: Chest Pain. REFERENCE: Previous study dated 03/11/2017. FINDINGS: The lungs remain clear. Pleural spaces are clear. The heart is not enlarged. IMPRESSION: NORMAL CHEST.
[2017-10-27 10:05] LABS: Creatine Kinase 55 U/L (30-135)
[2017-10-27 10:19] LABS: Creatine Kinase MB 0.3 ng/mL (0.0-2.4); Troponin I <0.012 ng/mL (0.000-0.034)
[2017-10-27] MEDS ORDERED: RX INFO: IV CONTRAST WAS GIVEN 1 EACH MISC MISCELLANE PRN (10:44)
--- NOTE | 2017-10-27 11:20 | CT ---
EXAMINATION TYPE: CT chest angio for PE DATE OF EXAM: 10/27/2017 COMPARISON: Previous study dated 03/11/2017 HISTORY: Mid chest pain, back pain CT DLP: 465.1 mGycm Automated exposure control for dose reduction was used. CONTRAST: CT Chest for pulmonary embolism performed with with IV Contrast, patient injected with 80 mL of Visip aque 320. FINDINGS: The lungs are clear. There is no significant axillary, internal mammary, mediastinal or hilar adenopathy. There is no pleu ral or pericardial fluid. The heart is not enlarged. There is no evidence of pulmonary embolus. The aorta is normal in caliber without evidence of dissect ion. Visualized portions of the upper abdomen are unremarkable. There is hypertrophic spondylosis within the spine. IMPRESSION: 1. This examination is negative for pulmonary embolus. 2. Degenerative change within the spine.
[2017-10-27] MEDS ORDERED: HEPARIN SODIUM,PORCINE 5,000 UNIT/ML 1 ML VIAL IV ONE (11:40)
[2017-10-27] MEDS ORDERED: NITROGLYCERIN SL TABS 0.4 MG TAB SUBLINGUAL PRN (11:50)
[2017-10-27] MEDS: HEPARIN SOD,PORK IN 0.45% NACL 25,000 UNIT in 0.45% NACL 1 500ML.BAG IV SCH (11:59)
[2017-10-27 13:43] VITALS: BMI 43.5
[2017-10-27] MEDS ORDERED: ACETAMINOPHEN TAB 500 MG TAB PO PRN (14:01)
[2017-10-27] MEDS ORDERED: ALPRAZolam 0.25 MG TAB PO PRN (14:01)
[2017-10-27] MEDS ORDERED: TEMAZEPAM 15 MG CAP PO PRN (14:01)
[2017-10-27] MEDS ORDERED: HYDROcodone/APAP 5-325MG 1 EACH TAB PO PRN (14:01)
[2017-10-27] MEDS: PANTOPRAZOLE 40 MG/10 ML VIAL IVP SCH ×2 (15:16→20:19)
[2017-10-27 15:56] LABS: Creatine Kinase 58 U/L (30-135)
--- NOTE | 2017-10-27 15:59 | HP ---
HISTORY AND PHYSICAL CHIEF COMPLAINT: Epigastric pain and chest pain. HISTORY OF PRESENT ILLNESS: This 52-year-old woman with past history of hypertension, history of cholecystectomy, history of DJD being followed by Dr. Castillo in the outpatient setting had a stress test about a year ago which is negative. Currently the patient is complaining of epigastric pain, sharp in character, radiates to the back and the patient came to [facility] and admitted for evaluation and treatment. Patient has felt the pain behind the shoulder blades and there is no history of shortness of breath. No history of palpitations, headache, loss of consciousness, seizures. The pain lasts almost 5 years. Pain is intermittent and appears to be provoked from some of the foods according to her. No other chest pain. No palpitations. No headache, loss of consciousness, seizures. The patient underwent a CTA also noted in the ER, which showed DJD of the spine, negative for pulmonary embolism. PAST MEDICAL HISTORY: History of hypertension, history of cholecystitis, history of degenerative joint disease, right ankle surgery. MEDICATIONS: Prior to admission: 1. Cozaar 50 mg daily. 2. HydroDIURIL 12.5 mg daily. 3. Ecotrin 81 mg p.o. daily. ALLERGIES: AMOXICILLIN. FAMILY HISTORY: History of cancer and diabetes in the family. SOCIAL HISTORY: No history of smoking. No history of alcohol intake. REVIEW OF SYSTEMS: ENT: No diminished hearing or vision. CARDIOVASCULAR: As mentioned. RESPIRATORY: As mentioned earlier. GI: As mentioned. : No dysuria. NERVOUS SYSTEM: No numbness or weakness. ALLERGY/IMMUNOLOGY: No asthma or hayfever. MUSCULOSKELETAL: As mentioned earlier. HEMATOLOGY/ONCOLOGY: No history of anemia. ENDOCRINE: No history of diabetes or hypothyroidism. CONSTITUTIONAL: As mentioned earlier. DERMATOLOGY: Negative. RHEUMATOLOGY: Negative. PSYCHIATRY: As mentioned earlier. PHYSICAL EXAMINATION: Alert and oriented x3. Pulse 82, blood pressure 125/66, respirations 16, temperature 98.2, pulse ox 97% on 2 L. HEENT: Conjunctivae normal. Oral mucosa moist. NECK: No jugular venous distention. No carotid bruit. No lymph node enlargement. CARDIOVASCULAR: S1, S2. No S3, no S4. RESPIRATORY: Breath sounds diminished in the bases. No rhonchi. No crackles. ABDOMEN: Soft. Mild diffuse tenderness in the epigastrium. Minimal guarding, no rigidity. No mass palpable. LEGS: No edema, no swelling. NERVOUS SYSTEM: Higher function as mentioned. Moves all 4 limbs. No focal motor sensory deficits. LYMPHATICS: No lymphadenopathy in the neck, axillae, groin. SKIN: No ulcer, rash or bleeding. LAB: CBC within normal. D-dimer 0.84. Creatinine is 1.0. ASSESSMENT: 1. Chest pain possible unstable angina. 2. Possible gastroesophageal reflux disease. 3. Increased D-dimer with no evidence of pulmonary embolus. 4. Degenerative joint disease of the spine. 5. Increased creatinine with mild acute renal failure possibly. 6. History of hypertension. 7. History of cholecystectomy. 8. History of degenerative joint disease. 9. History right ankle surgery. RECOMMENDATIONS AND DISCUSSION: This 52-year-old woman who presented with multiple complex medical issues, will monitor the patient closely. Continue the current management and symptomatic treatment. Unstable angina protocol. Cardiology consultation. Resume the home medications. I would also recommend Protonix. Otherwise repeat labs. Symptomatic treatment also will be provided. Discussed with the patient and recommend the patient follow with Dr. Castillo closely in the outpatient setting. Further recommendations to follow. MMODL / IJN: [id number] /
[2017-10-27 16:09] LABS: Creatine Kinase MB 0.4 ng/mL (0.0-2.4); Troponin I <0.012 ng/mL (0.000-0.034)
[2017-10-27] MEDS: NITROGLYCERIN OINT 1 INCH/GM PACKET TOPICAL SCH (18:01)
[2017-10-27] MEDS: HEPARIN SODIUM,PORCINE 5,000 UNIT/ML 1 ML VIAL IV PRN (21:43)
[2017-10-27 21:58] LABS: Creatine Kinase 53 U/L (30-135)
[2017-10-27 22:11] LABS: Creatine Kinase MB 0.4 ng/mL (0.0-2.4); Troponin I <0.012 ng/mL (0.000-0.034)
--- NOTE | 2017-10-27 22:32 | CONS ---
CONSULTATION ATTENDING: Dr. Castillo. Mrs. Kathleen is a 52-year-old female with a history of hypertension and no documented history of cardiac disease who for the last few days has been complaining of chest and back discomfort. She was in the hospital in February of this year with palpitation and symptoms of discomfort and subsequently underwent a stress test that showed no evidence of inducible ischemia and her left ventricular systolic function was normal. The patient underwent cholecystectomy recently. She denies any exertional chest pain. The symptoms in the back are on and off, but not related to physical activity. She denies any associated dizziness. She has no further palpitation. No syncope. No clear PND. No orthopnea. Her cardiac risk factors are remarkable for hypertension. No hyperlipidemia. No diabetes. She is a nonsmoker. MEDICATIONS: Include: 1. Losartan 50 mg daily. 2. Hydrochlorothiazide 12 .5 mg daily and. 3. Aspirin once a day. REVIEW OF SYSTEMS: RESPIRATORY: She has no history of documented asthma, emphysema or bronchitis. GI: No recent GI bleeding. No peptic ulcer disease. : No dysuria or hematuria. NERVOUS: No history of stroke or seizure. PHYSICAL EXAMINATION: She is a 52-year-old female; alert, oriented, in no apparent distress. Blood pressure 125/60 with a heart rate in the 80s. HEAD: Normocephalic. EYES: Sclerae anicteric. NECK: Good carotid upstroke. No bruits. No jugular venous distention. LUNGS: Clear to auscultation. HEART: Regular rate and rhythm. S1, S2. No S3. No S4. No murmur or rub. ABDOMEN: Soft, nontender. Positive bowel sounds. No megaly. EXTREMITIES: No edema. Intact distal pulses. LAB DATA: BUN and creatinine 17 and 1.09, potassium 4.0, hemoglobin 13.6, troponin of less than 0.012 for one sample. EKG revealed a sinus mechanism, normal axis and intervals with minor nonspecific ST-T wave changes. Chest x-ray shows no acute infiltrate. CT angiogram of the chest shows no evidence of pulmonary embolism. IMPRESSION: 1. Symptoms of chest discomfort and back discomfort, have some atypical features for ischemic heart disease, probably noncardiac. 2. History of hypertension. 3. Status post recent cholecystectomy. RECOMMENDATION: I have reviewed with the patient and her the results of her stress test and echocardiogram that were done in February of 2017. If the rest of her enzyme are unremarkable, then I would not recommend any further cardiac workup. If there are any abnormalities, then cardiac catheterization will be needed. Otherwise, she can follow up as an outpatient with Dr. Cooney. Thank you for this consult. Will follow with you. MMODL / IJN: [id number] /
[2017-10-27 23:54] VITALS: RESP 16
[2017-10-28] MEDS: NITROGLYCERIN OINT 1 INCH/GM PACKET TOPICAL SCH ×2 (00:29→04:53)
[2017-10-28 04:05] LABS: Basophils # (A) 0.1 k/uL (0-0.2); Basophils % (A) 1 %; Eosinophils # (A) 0.3 k/uL (0-0.7); Eosinophils % (A) 3 %; HCT 39.5 % (34.0-46.0); HGB 12.7 gm/dL (11.4-16.0); Lymphocytes # (A) 3.4 k/uL (1.0-4.8); Lymphocytes % (A) 33 %; MCH 28.2 pg (25.0-35.0); MCHC 32.1 g/dL (31.0-37.0); Mean Platelet Volume 7.7; Monocytes # (A) 0.6 k/uL (0-1.0); Monocytes % (A) 6 %; Neutrophils # (A) 5.8 k/uL (1.3-7.7); Neutrophils % (A) 56 %; Platelet Count 210 k/uL (150-450); RBC 4.49 m/uL (3.80-5.40); RDW 14.7 % (11.5-15.5); WBC 10.2 k/uL (3.8-10.6)
[2017-10-28 04:30] LABS: Anion Gap 9 mmol/L; Blood Urea Nitrogen 14 mg/dL (7-17); Calcium 9.4 mg/dL (8.4-10.2); Carbon Dioxide 28 mmol/L (22-30); Chloride 102 mmol/L (98-107); Cholesterol 178 mg/dL (<200); Glucose 99 mg/dL (74-99); HDL Cholesterol 36 mg/dL (40-60); LDL Cholesterol,Calculated 107 mg/dL (0-99); Potassium 4.3 mmol/L (3.5-5.1); Sodium 139 mmol/L (137-145); Triglycerides 173 mg/dL (<150)
[2017-10-28] MEDS: HEPARIN SODIUM,PORCINE 5,000 UNIT/ML 1 ML VIAL IV PRN (04:56)
[2017-10-28] MEDS: HEPARIN SOD,PORK IN 0.45% NACL 25,000 UNIT in 0.45% NACL 1 500ML.BAG IV SCH (05:58)
[2017-10-28] MEDS ORDERED: PANTOPRAZOLE 40 MG TABLET PO SCH (07:30)
[2017-10-28] MEDS: PANTOPRAZOLE 40 MG/10 ML VIAL IVP SCH (08:29)
[2017-10-28] MEDS ORDERED: HYDROCHLOROTHIAZIDE 12.5 MG CAP PO SCH (09:00)
[2017-10-28] MEDS ORDERED: ASPIRIN 81 MG PO SCH (09:00)
[2017-10-28] MEDS ORDERED: LOSARTAN 50 MG TAB PO SCH (09:00)
[2017-10-28] MEDS ORDERED: ASPIRIN 325 MG TAB PO SCH (09:00)
--- NOTE | 2017-10-28 10:51 | PN ---
PROGRESS NOTE Mrs. Kathleen is a 52-year-old female who presented with symptoms of chest discomfort. She is feeling better this morning. She has no back or chest discomfort. Her breathing has been stable. She denies any dizziness or palpitation. She denies any nausea. She continues to be on aspirin 81 mg daily, hydrochlorothiazide 12.5 mg daily, losartan 50 mg daily. Nitroglycerin paste, temazepam, Protonix intravenously. PHYSICAL EXAMINATION: Blood pressure 119/60 with a heart in the 70s. LUNGS: Clear. Regular rhythm S1, S2. No S3. No rub. ABDOMEN: Soft, nontender. EXTREMITIES: No edema. LAB DATA: Lab data revealed troponin less than 0.012. Cholesterol 178, LDL of 107. IMPRESSION: 1. Chest discomfort, atypical for ischemic heart disease, appears to be just GI in origin. 2. History of hypertension. RECOMMENDATION: I would recommend to stop the heparin and the nitrate. Continue present therapy. Increase her level of activity. I would expect she should be able to be discharged home today and followed as an outpatient. MMODL / IJN: [id number] /
[2017-10-28 12:20] VITALS: BP 134/66; PULSE 71; TEMP 98.2
--- NOTE | 2017-10-29 12:19 | DS ---
DISCHARGE SUMMARY DATE OF SERVICE: 10/28/2017. FINAL DIAGNOSES: 1. Epigastric pain, possible gastroesophageal reflux disease, myocardial infarction ruled out. 2. Increased D-dimer with no evidence of pulmonary embolus. 3. History of degenerative joint disease of the spine. 4. Increased creatinine with mild acute renal failure possibly present on admission improved. 5. History of hypertension, history of cholecystectomy, history of degenerative joint disease. 6. History of right ankle surgery. CONDITION: The patient is being discharged in stable condition with guarded prognosis. HISTORY OF PRESENT ILLNESS: This is a 52-year-old woman with a past medical history of multiple medical problems, being followed by Jonathan in the outpatient setting, was admitted with epigastric and chest pain. Patient was monitored closely. Myocardial infarction ruled out. Cardiology recommended outpatient followup. Patient had a stress test last year, treated with protamine use. Patient improved significantly. On exam, vitals are stable. Cardiovascular, S1 and S2 muffled. Abdomen soft, nontender. Nervous system, no focal deficits. DISCHARGE INSTRUCTIONS: 1. Diet is cardiac. 2. Activity limited. 3. Follow up with Dr. Castillo in 1 to 2 days. 4. Follow up with Cardiology p.r.n. MEDICATIONS: 1. HydroDIURIL 12.5 mg daily. 2. Cozaar 50 mg p.o. daily. 3. Protonix 40 mg p.o. b.i.d. Once again, the patient will be discharged in stable condition with guarded prognosis. MMODL / IJN: [id number] /
== END 2017-10-28 13:43 | disposition home or self-care (01) ==
LOC: EC 09:14 → 3OBS 11:50
PROVIDERS: ADMIT Hospitalist; ATTEND Hospitalist
DX: R10.13 Epigastric pain (principal); R07.89 Other chest pain; M54.9 Dorsalgia, unspecified; R79.89 Other specified abnormal findings of blood chemistry; R74.8 Abnormal levels of other serum enzymes; M47.9 Spondylosis, unspecified; I10 Essential (primary) hypertension; M19.90 Unspecified osteoarthritis, unspecified site; Z90.49 Acquired absence of other specified parts of digestive tract; Z79.899 Other long term (current) drug therapy; Z79.82 Long term (current) use of aspirin; Z88.0 Allergy status to penicillin; Z83.3 Family history of diabetes mellitus; Z82.49 Family history of ischemic heart disease and other diseases of the circulatory system; Z80.9 Family history of malignant neoplasm, unspecified; Z82.3 Family history of stroke
CPT/HCPCS: 36415; 71046; 71275; 80048; 80053; 80061; 82150; 82550; 82553; 83690; 83735; 83880; 84484; 85025; 85379; 85610; 85730; 93005; 94760; 96365; 96366; 96375; 96376; 99291

== ENCOUNTER 2017-12-12 13:04 | Day surgery (SDC) | payer OTHER ==
[2017-12-07 10:32] VITALS: BMI 42.9
[~2017-12-12 13:04] MED LIST changes: -DEXAMETHASONE SOD PHOSPHATE 10 MG/ML 1 ML VIAL IV ONE; -HEPARIN SODIUM,PORCINE 5,000 UNIT/ML 1 ML VIAL SQ ONE; +LACTATED RINGERS 1,000 ML IV SCH; +LIDOCAINE 1% 20 ML VIAL (10MG/ML) FOR IV START INTRADERMA PRN; -MIDAZOLAM 2 MG/2 ML VIAL IV PRN; -MORPHINE SULFATE 4 MG/ML SYRINGE IV PRN; -ONDANSETRON 4 MG/2 ML VIAL IVP ONE; -SCOPOLAMINE 1.5MG/72HR PATCH TRANSDERM ONE; -ceFAZolin 3 GM in SODIUM CHLORIDE 0.9% 100 ML IVPB ONE
[2017-12-12 13:25] VITALS: RESP 16; TEMP 97.9
[2017-12-12] MEDS ORDERED: LIDOCAINE 1% 20 ML VIAL (10MG/ML) FOR IV START INTRADERMA ONE (13:32)
[2017-12-12] MEDS ORDERED: PROPOFOL 10 MG/ML 20 ML VIAL IV ONE (14:14)
[2017-12-12] MEDS ORDERED: GLYCOPYRROLATE 0.2 MG/ML 2 ML VIAL ONE (14:14)
[2017-12-12] MEDS ORDERED: LIDOCAINE 1% INJ 10MG/ML (20 ML MDV) ONE (14:14)
--- NOTE | 2017-12-12 14:19 | P.GSHP ---
History of Present Illness H&P Date: 12/12/17 Chief Complaint: GERD, screening colonoscopy This a 52-year-old female referred from Dr. Vargas Adam. Patient rents today for EGD and screening colonoscopy. She's had issues with GERD. Past Medical History Past Medical History: GERD/Reflux, Hypertension History of Any Multi-Drug Resistant Organisms: None Reported Past Surgical History: Cholecystectomy, Orthopedic Surgery Additional Past Surgical History / Comment(s): Right ankle surgery Past Anesthesia/Blood Transfusion Reactions: No Reported Reaction Smoking Status: Never smoker - Past Family History Mother Family Medical History: Cancer, Diabetes Mellitus Additional Family Medical History / Comment(s): bone Father Family Medical History: CVA/TIA Sister(s) Family Medical History: Coronary Artery Disease (CAD), Myocardial Infarction (RI ) Additional Family Medical History / Comment(s): 1 sister from spinal meningitis Brother(s) Family Medical History: Congestive Heart Failure (CHF), Coronary Artery Disease (CAD), Myocardial Infarction (RI) Additional Family Medical History / Comment(s): from heart failure & PE Medications and Allergies Home Medications Medication Instructions Recorded Confirmed Type Hydrochlorothiazide [Hydrodiuril] 12.5 mg PO DAILY 03/11/17 12/12/17 History Losartan [Cozaar] 50 mg PO DAILY 10/04/17 12/12/17 History Pantoprazole Sodium [Protonix] 40 mg PO BID #60 tablet. 10/28/17 12/12/17 Rx Allergies Allergy/AdvReac Type Severity Reaction Status Date / Time amoxicillin Allergy Rash/Hives Verified 12/12/17 13:32 Surgical - Exam Vital Signs Temp Pulse Resp BP Pulse Ox 97.9 F 73 16 117/62 100 12/12/17 13:20 12/12/17 13:20 12/12/17 13:20 12/12/17 13:20 12/12/17 13:20 - General well developed, no distress - Eyes PERRL - ENT normal pinna - Neck no masses - Respiratory normal expansion - Cardiovascular Rhythm: regular - Abdomen Abdomen: soft, non tender Assessment and Plan Assessment: GERD. We'll perform EGD. We'll also perform screening colonoscopy.
[2017-12-12 14:41] VITALS: BP 113/78; PULSE 87
--- NOTE | 2017-12-12 14:41 | P.OP ---
Date of Procedure: 12/12/17 Preoperative Diagnosis: GERD Screening colonoscopy Postoperative Diagnosis: Antral gastritis No evidence of hiatal hernia Mild esophagitis Normal colon Procedure(s) Performed: EGD Colonoscopy Anesthesia: MAC Surgeon: Walt Ashley Pathology: other (The antrum, esophagus) Condition: stable Disposition: PACU Description of Procedure: Patient's placed on the endoscopy table lateral position. She received IV sedation. The gastroscope placed oropharynx passed in the esophagus and stomach. Scope was then placed through the pylorus. The second portion of the duodenum appeared normal. Scope was then brought back the antrum and this appeared mildly inflamed. A biopsies performed. Scope was unretroflexed and remainder stomach appeared normal. There is no significant hiatal hernia. The GE junction was at 40 cm.. The distal esophagus appeared minimally inflamed a biopsies performed. The proximal esophagus. Normal. Scope was withdrawn for patient. Next, digital rectal exam was performed which revealed no abnormalities. The flexible colonoscope was then placed patient anus passed throughout the entire colon. The ileocecal valve was visualized. Cecum, ascending and transverse colon appeared normal. The descending and sigmoid colon appeared normal. Scope was then brought back the rectum and this appeared normal. Scope was withdrawn for patient.
== END 2017-12-12 15:09 | disposition home or self-care (01) ==
LOC: ORWHC2ENDO 13:04
PROVIDERS: ATTEND Surgery
DX: Z12.11 Encounter for screening for malignant neoplasm of colon (principal); K29.50 Unspecified chronic gastritis without bleeding; K21.0 Gastro-esophageal reflux disease with esophagitis; I10 Essential (primary) hypertension; E66.9 Obesity, unspecified; Z68.41 Body mass index [BMI] 40.0-44.9, adult; Z79.899 Other long term (current) drug therapy; Z88.0 Allergy status to penicillin
CPT/HCPCS: 81025; 88305; 43239; J2001; J2704; G0121

== ENCOUNTER → 2018-10-08 | Outpatient (CLI) | payer OTHER ==
--- NOTE | 2018-10-09 10:55 | MM ---
Reason for exam: screening (asymptomatic). Last mammogram was performed 1 year ago. History: Patient is nulliparous. Family history of breast cancer in mother at age 75. Took hormonal contraceptives for 16 years. Physical Findings: A clinical breast exam by your physician is recommended on an annual basis and results should be correlated with mammographic findings. MG Screening Mammo w CAD Bilateral CC and MLO view(s) were taken. Prior study comparison: September 25, 2017, bilateral MG screening mammo w CAD. August 04, 2016, bilateral MG screening mammo w CAD. There are scattered fibroglandular densities. Global asymmetry left axillary tail is unchanged. No significant changes when compared with prior studies. ASSESSMENT: Negative, BI-RAD 1 RECOMMENDATION: Routine screening mammogram of both breasts in 1 year.
== END | disposition home or self-care (01) ==
LOC: RADMAMWWP 07:31
PROVIDERS: ATTEND Obstetrics & Gynecology
DX: Z12.31 Encounter for screening mammogram for malignant neoplasm of breast (principal); Z80.3 Family history of malignant neoplasm of breast
CPT/HCPCS: 77067

== ENCOUNTER → 2019-10-09 | Outpatient (CLI) | payer OTHER ==
--- NOTE | 2019-10-10 14:59 | MM ---
Reason for exam: screening (asymptomatic). Last mammogram was performed 1 year ago. History: Patient is nulliparous. Family history of breast cancer in mother at age 75. Took hormonal contraceptives for 16 years. Physical Findings: A clinical breast exam by your physician is recommended on an annual basis and results should be correlated with mammographic findings. MG Screening Mammo w CAD Bilateral CC and MLO view(s) were taken. Prior study comparison: October 08, 2018, bilateral MG screening mammo w CAD. September 25, 2017, bilateral MG screening mammo w CAD. There are scattered fibroglandular densities. There is no discrete abnormality including area of concern. No significant changes when compared with prior studies. ASSESSMENT: Negative, BI-RAD 1 RECOMMENDATION: Routine screening mammogram of both breasts in 1 year.
== END | disposition home or self-care (01) ==
LOC: RADMAMWWP 09:10
PROVIDERS: ATTEND Obstetrics & Gynecology
DX: Z12.31 Encounter for screening mammogram for malignant neoplasm of breast (principal); Z80.3 Family history of malignant neoplasm of breast
CPT/HCPCS: 77067

== ENCOUNTER → 2021-01-21 | Outpatient (CLI) | payer OTHER ==
[2021-01-21 14:40] LABS: Basophils % (A) 0 %; Eosinophils # (A) 0.3 k/uL (0-0.7); Eosinophils % (A) 4 %; HCT 38.3 % (34.0-46.0); HGB 13.3 gm/dL (11.4-16.0); Lymphocytes # (A) 2.7 k/uL (1.0-4.8); Lymphocytes % (A) 33 %; MCHC 34.7 g/dL (31.0-37.0); MCV 86.4 fL (80.0-100.0); Mean Platelet Volume 7.2; Monocytes # (A) 0.5 k/uL (0-1.0); Monocytes % (A) 6 %; Neutrophils # (A) 4.6 k/uL (1.3-7.7); Neutrophils % (A) 56 %; Platelet Count 224 k/uL (150-450); RBC 4.43 m/uL (3.80-5.40); RDW 13.9 % (11.5-15.5); WBC 8.2 k/uL (3.8-10.6)
== END | disposition home or self-care (01) ==
LOC: LABWHC1 13:49
PROVIDERS: ATTEND Surgery
DX: Z01.818 Encounter for other preprocedural examination (principal)
CPT/HCPCS: 36415; 85025; 86850; 86900; 86901; 93005

== ENCOUNTER 2021-01-25 06:52 | Day surgery (SDC) | payer OTHER ==
[2021-01-21 11:15] VITALS: BMI 48.4
[~2021-01-25 06:52] MED LIST changes: +ACETAMINOPHEN TAB 500 MG TAB PO PRN; +DEXAMETHASONE SOD PHOSPHATE 4 MG/ML 1 ML VIAL IV ONE; +HEPARIN SODIUM,PORCINE/PF 5,000 UNIT/0.5 ML SYRINGE SQ PRN; +LIDOCAINE 1% (10MG/ML) FOR IV START INTRADERMA PRN; -LIDOCAINE 1% 20 ML VIAL (10MG/ML) FOR IV START INTRADERMA PRN; +MIDAZOLAM 2 MG/2 ML VIAL IV PRN; +ceFAZolin 3 GM in SODIUM CHLORIDE 0.9% 100 ML IVPB PRN
[2021-01-25] MEDS ORDERED: LACTATED RINGERS 1,000 ML IV ONE ×4 (07:25→10:20)
[2021-01-25] MEDS: fentaNYL (PF) 50 MCG/ML 2 ML AMP IVP ONE ×2 (08:04→11:18)
[2021-01-25] MEDS: ONDANSETRON 4 MG/2 ML VIAL IVP ONE ×2 (08:17→10:48)
--- NOTE | 2021-01-25 08:24 | P.ANPRN ---
Procedure Note - Anesthesia - Nerve Block Performed Bilateral Rectus Abdominis Single Time Out Performed: Yes Date of Procedure: 01/25/21 Procedure Start Time: 08:00 Procedure Stop Time: 08:13 Location of Patient: PreOp Indication: Requested by Surgeon Specifically requested for management of pain by DrMakenna: Walt Ashley Sedation Type: Sedate with meaningful contact maintained Preparation: Sterile Prep Position: Supine Needle Types: Pajunk Needle Gauge: 21 Ultrasound used to visualize needle placement: Yes Ultrasound used to observe medication spread: Yes Injectate: 0.5% Ropivacaine (see comment for volume) (15 ml plus 5 ml 0.9 % NS plus Dexamethsone 2 mg per side) Blood Aspirated: No Pain Paresthesia on Injection Noted: No Resistance on Injection: Normal Image Stored and Saved: Yes Events: Uneventful and Well Tolerated
--- NOTE | 2021-01-25 08:43 | P.GSHP ---
History of Present Illness H&P Date: 01/25/21 Chief Complaint: Incisional hernia Is a 55-year-old female who presents today for laparoscopic robotic-assisted repair of incisional hernia. Past Medical History Past Medical History: Hypertension Additional Past Medical History / Comment(s): incisional hernia History of Any Multi-Drug Resistant Organisms: None Reported Past Surgical History: Cholecystectomy, Orthopedic Surgery Additional Past Surgical History / Comment(s): Right ankle surgery Past Anesthesia/Blood Transfusion Reactions: No Reported Reaction Smoking Status: Never smoker - Past Family History Mother Family Medical History: Cancer, Diabetes Mellitus Additional Family Medical History / Comment(s): bone Father Family Medical History: CVA/TIA Sister(s) Family Medical History: Coronary Artery Disease (CAD), Myocardial Infarction (CO) Additional Family Medical History / Comment(s): 1 sister from spinal meningitis Brother(s) Family Medical History: Congestive Heart Failure (CHF), Coronary Artery Disease (CAD), Myocardial Infarction (CO) Additional Family Medical History / Comment(s): from heart failure & PE Medications and Allergies Home Medications Medication Instructions Recorded Confirmed Type hydroCHLOROthiazide [Hydrodiuril] 12.5 mg PO DAILY 03/11/17 01/25/21 History Losartan [Cozaar] 50 mg PO QAM 10/04/17 01/25/21 History Allergies Allergy/AdvReac Type Severity Reaction Status Date / Time amoxicillin Allergy Rash/Hives Verified 01/25/21 07:15 Surgical - Exam Vital Signs Temp Pulse Resp BP Pulse Ox 97.1 F L 87 16 116/58 96 01/25/21 07:35 01/25/21 07:35 01/25/21 07:35 01/25/21 07:35 01/25/21 07:35 - General well developed, well nourished, no distress - Eyes PERRL - ENT normal pinna - Neck no masses - Respiratory normal expansion - Cardiovascular Rhythm: regular - Abdomen 3 cm incisional hernia located epigastric trocar site Abdomen: soft, non tender Assessment and Plan Assessment: Incisional hernia. We'll perform laparoscopic robotic-assisted repair.
[2021-01-25] MEDS ORDERED: KETAMINE 10 MG/ML 20 ML VIAL ONE (08:51)
[2021-01-25] MEDS ORDERED: LIDOCAINE 1% INJ 10MG/ML (20 ML MDV) ONE (08:51)
[2021-01-25] MEDS ORDERED: MIDAZOLAM 2 MG/2 ML VIAL ONE (08:51)
[2021-01-25] MEDS ORDERED: SUCCINYLCHOLINE CHLORIDE VIAL 200 MG/10 ML VIAL IV ONE (08:51)
[2021-01-25] MEDS ORDERED: fentaNYL (PF) 50 MCG/ML 2 ML AMP ONE (08:51)
[2021-01-25] MEDS ORDERED: DEXAMETHASONE SOD PHOSPHATE 4 MG/ML 1 ML VIAL ONE (08:51)
[2021-01-25] MEDS ORDERED: GLYCOPYRROLATE 0.2 MG/ML 2 ML VIAL ONE (08:51)
[2021-01-25] MEDS ORDERED: PROPOFOL 10 MG/ML 20 ML VIAL IV ONE (08:51)
[2021-01-25] MEDS ORDERED: ROPIVACAINE 5 MG/ML 30 ML VIAL ONE (08:51)
[2021-01-25] MEDS ORDERED: ROCURONIUM 10 MG/ML (5 ML VIAL) IV ONE (08:51)
[2021-01-25] MEDS ORDERED: NEOSTIGMINE 1 MG/ML 10 ML VIAL ONE (08:51)
[2021-01-25] MEDS ORDERED: BUPIVACAINE (PF) 0.25% 30 ML VIAL SQ ONE (09:21)
[2021-01-25 10:15] VITALS: TEMP 96.8
--- NOTE | 2021-01-25 10:16 | P.OP ---
Date of Procedure: 01/25/21 Preoperative Diagnosis: Incisional hernia Postoperative Diagnosis: Incisional hernia Procedure(s) Performed: Laparoscopic robotic-assisted repair of incisional hernia Anesthesia: NAVARRO Surgeon: Walt Ashley Estimated Blood Loss (ml): 10 Pathology: none sent Condition: stable Disposition: PACU Description of Procedure: The patient was placed on the operating table in the supine position. He received general anesthesia. His abdomen was prepped and draped usual fashion. Using a 5 mm optical trocar under direct visualization the peritoneal cavity was entered in the left upper quadrant. The abdomen was then insufflated. The laparoscope was placed back into the perineal cavity. Next a 8 mm robotic trocar was placed in the left lower quadrant and a 12 mm robotic trocar was placed in the left lateral position. The original 5 mm trocar was exchanged for a 8 mm robotic trocar. The patient's placed in the left side up position. And the patient was docked to the robot. The incisional hernia was visualized. Using hook cautery the peritoneum over the incisional hernia was excised. The fascial opening was repaired using 0V LOC suture. Next a piece of 11 cm round ventral light ST mesh was placed into the. Cavity and secured with 2 OV lock suture. The patient was undocked the robot. The needles were retrieved. The fascia of the 12 mm trocar site was closed with 0 Ethibond suture. Skin was closed interrupted 3-0 Monocryl suture. Dermabond dressings was applied. Patient tolerated procedure well and was sent to recovery room stable condition.
[2021-01-25] MEDS: HYDROmorphone 0.5 MG/0.5 ML SYRINGE IVP PRN ×4 (10:33→11:02)
[2021-01-25] MEDS ORDERED: KETOROLAC 15 MG/ML 1 ML VIAL IVP ONE (10:43)
[2021-01-25 13:02] VITALS: RESP 16
[2021-01-25 13:34] VITALS: BP 160/75; PULSE 77
== END 2021-01-25 13:35 | disposition home or self-care (01) ==
LOC: OR 06:52
PROVIDERS: ATTEND Surgery
DX: K43.2 Incisional hernia without obstruction or gangrene (principal); I10 Essential (primary) hypertension; E66.01 Morbid (severe) obesity due to excess calories; Z90.49 Acquired absence of other specified parts of digestive tract; Z98.890 Other specified postprocedural states; Z79.899 Other long term (current) drug therapy; Z88.0 Allergy status to penicillin; Z68.42 Body mass index [BMI] 45.0-49.9, adult; Z80.8 Family history of malignant neoplasm of other organs or systems; Z83.3 Family history of diabetes mellitus; Z82.3 Family history of stroke; Z82.49 Family history of ischemic heart disease and other diseases of the circulatory system; Z83.1 Family history of other infectious and parasitic diseases
CPT/HCPCS: 49654; S2900; 64488; 84703; 86850; 86900; 86901

== ENCOUNTER → 2021-03-15 | Outpatient (CLI) | payer OTHER ==
--- NOTE | 2021-03-17 09:38 | MM ---
Reason for exam: screening (asymptomatic). Last mammogram was performed 1 year and 5 months ago. History: Patient is postmenopausal and is nulliparous. Family history of breast cancer in mother at age 75. Took hormonal contraceptives for 16 years. Physical Findings: A clinical breast exam by your physician is recommended on an annual basis and results should be correlated with mammographic findings. MG Screening Mammo w CAD Bilateral CC and MLO view(s) were taken. Prior study comparison: October 09, 2019, bilateral MG screening mammo w CAD. October 08, 2018, bilateral MG screening mammo w CAD. There are scattered fibroglandular densities. No significant changes when compared with prior studies. ASSESSMENT: Negative, BI-RAD 1 RECOMMENDATION: Routine screening mammogram of both breasts in 1 year.
== END | disposition home or self-care (01) ==
LOC: RADMAMWWP 10:19
PROVIDERS: ATTEND Obstetrics & Gynecology
DX: Z12.31 Encounter for screening mammogram for malignant neoplasm of breast (principal); Z80.3 Family history of malignant neoplasm of breast; Z78.0 Asymptomatic menopausal state
CPT/HCPCS: 77067

== ENCOUNTER → 2022-06-27 | Outpatient (CLI) | payer OTHER ==
--- NOTE | 2022-06-27 13:07 | MM ---
Reason for Exam: Screening (asymptomatic). Last mammogram was performed 1 year(s) and 4 month(s) ago. Patient History: Menarche at age 14. Patient has no children. Postmenopausal. Patient used Hormonal Contraceptives for 16 years. Mother had breast cancer, age 75. Risk Values: Yari 5 year model risk: 2.3%. NCI Lifetime model risk: 15.5%. Prior Study Comparison: 10/08/2018 Bilateral Screening Mammogram, [facility]. 10/09/2019 Bilateral Screening Mammogram, [facility]. 03/15/2021 Bilateral Screening Mammogram, [facility]. Tissue Density: There are scattered fibroglandular densities. Findings: Analyzed By CAD. Benign-appearing bilateral axillary lymph nodes are redemonstrated. A few small scattered benign-appearing round calcifications bilaterally are again seen. There is no suspicious new group of microcalcifications or new suspicious mass in either breast. Overall Assessment: Benign, BI-RAD 2 Management: Screening Mammogram of both breasts in 1 year. A clinical breast exam by your physician is recommended on an annual basis and results should be correlated with mammographic findings. Electronically signed and approved by: Travis Jackman M.D.
== END | disposition home or self-care (01) ==
LOC: RADMAMWWP 07:42
PROVIDERS: ATTEND Obstetrics & Gynecology
DX: Z12.31 Encounter for screening mammogram for malignant neoplasm of breast (principal); Z80.3 Family history of malignant neoplasm of breast
CPT/HCPCS: 77067

== ENCOUNTER → 2024-06-03 | Outpatient (CLI) | payer OTHER | END | disposition home or self-care (01) | LOC: LABPRL 10:00 | PROVIDERS: ATTEND Family Medicine | DX: Z00.00 Encounter for general adult medical examination without abnormal findings (principal); I10 Essential (primary) hypertension; K21.9 Gastro-esophageal reflux disease without esophagitis; R73.9 Hyperglycemia, unspecified | CPT/HCPCS: 80053; 80061; 83036; 85025 ==